=== PATIENT | male | born 1955 | race Caucasian/White ===

== ENCOUNTER 2019-01-23 09:24 | Outpatient (CLI) | payer BC ==
[2019-01-23 09:59] LABS: #Eosinphils 0.3 thou/uL (0.0-0.7); #Lymphocytes 1.6 thou/uL (1.20-3.40); #Monocytes 0.5 thou/uL (0.11-0.59); #Neutrophils 1.8 thou/uL (1.40-6.50); %Basophils 1.2 % (0.0-1.0); %Eosinophils 6.1 % (0.0-10.0); %Lymphocytes 37.1 % (21.0-51.0); %Monocytes 11.6 % (0.0-10.0); Hemoglobin 12.5 g/dL (14.0-18.0); Mean Corpuscular HGB CONC 35.5 g/dL (32.0-36.0); Mean Corpuscular Hemoglobin 35.9 pg (27.0-31.0); Platelet Count 179 thou/uL (130-400); RBC Distribution Width 12.7 % (11.5-14.5); Red Blood Cell (RBC) Count 3.48 mill/uL (4.70-6.10); White Blood Cell (WBC) Count 4.2 thou/uL (4.8-10.8)
[2019-01-23 10:18] LABS: Anion Gap 15 mmol/L (10-20); BUN (Urea Nitrogen) 21 mg/dL (8.4-25.7); Calc. Creatinine Clearance 0 mL/min (70-130); Carbon Dioxide 18 mmol/L (23-31); Chloride 105 mmol/L (98-107); Estimated GFR-MDRD 76; Glucose 89 mg/dL (80-115); Potassium 5.2 mmol/L (3.5-5.1); Sodium 133 mmol/L (136-145)
--- NOTE | 2019-01-23 10:26 | RAD ---
XR Chest 1 View History: Preop evaluation Comparison: None. Findings: Lungs are without confluent airspace consolidation, pneumothorax, or effusion. Multiple mid line sternotomy wires without evidence of dehiscence. Mild degenerative changes acromioclavicular joints. Impression: No acute intrathoracic abnormality.
== END 2019-01-23 09:25 | disposition home or self-care (01) ==
LOC: LABBT 09:24
PROVIDERS: ATTEND Internal Medicine Cardiovascular Disease
DX: Z01.818 Encounter for other preprocedural examination (principal); R94.39 Abnormal result of other cardiovascular function study
CPT/HCPCS: 71045; 80048; 85025

== ENCOUNTER 2019-01-29 05:33 | Observation (INO) | payer BC ==
[2019-01-23 09:14] VITALS: BMI 28.0
[2019-01-29] MEDS ORDERED: Lidocaine 1% (PF) 30 ML VIAL ONE (06:49)
[2019-01-29] MEDS ORDERED: Heparin 10,000 UNITS/1 ML VIAL ONE (06:50)
[2019-01-29] MEDS ORDERED: Midazolam HCl 2 mg/2 ml Vial ONE (07:16)
[2019-01-29] MEDS ORDERED: Fentanyl 100 MCG/2 ML VIAL ONE (07:16)
[2019-01-29] MEDS ORDERED: Protamine Sulfate 50 MG/5 ML VIAL ONE (08:04)
[2019-01-29] MEDS ORDERED: Sodium Chloride 0.9% 200 ML IV PRN (08:32)
[2019-01-29] MEDS ORDERED: Nitroglycerin 0.4 MG TAB (25 Tab Bottle) SL PRN (08:32)
[2019-01-29] MEDS ORDERED: Acetaminophen/Codeine 30-300mg Tablet PO PRN ×2 (08:32)
[2019-01-29] MEDS ORDERED: Sodium Chloride 0.9% 1,000 ML IV SCH (08:45)
[2019-01-29] MEDS: Aspirin 325 mg Enteric Coated Tablet PO SCH (11:38)
[2019-01-29] MEDS: Ezetimibe 10 MG TAB PO SCH (11:39)
[2019-01-29] MEDS: Fluticasone Propionate Nasal Spray 16 gm Bottle NASAL SCH (11:39)
[2019-01-29] MEDS: Azelastine 137 MCG/Spray 30 ML NS SCH (11:39)
[2019-01-29] MEDS: Nadolol 40 MG TAB PO SCH (11:41)
[2019-01-29] MEDS: Lisinopril 20 MG TAB PO SCH (11:41)
[2019-01-29] MEDS ORDERED: Iopamidol 370 76% 100 ML VIAL ONE (20:18)
[2019-01-29] MEDS ORDERED: Iopamidol 370 76% 50 ML VIAL FS ONE (20:18)
[2019-01-29] MEDS ORDERED: Atorvastatin Calcium 20 MG TAB PO SCH (21:00)
--- NOTE | 2019-01-30 01:22 | CON ---
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 His cardiac history started when he was age 42, suffering a myocardial infarction and undergoing stenting. About 15 years ago, he had recurrence of chest pain and ultimately underwent coronary artery bypass grafting x3 by Dr. Joe Baltazar in [place]. He has taken care of himself since then. However, recently, he has been noting to have fatigue in his arms and legs and occasionally associated with some pressure, but not severe chest pain that he has had prior to his cardiac surgery. He underwent coronary catheterization today demonstrating a patent MARTINEZ graft to a small LAD that filled multiple septals and a small diagonal. His right coronary vein graft appeared to be a good quality graft, however, went to a very small PDA system. His PDA appeared to be a 1 to 1.5 mm vessel at best and had critical lesion in its proximal portion. The posterolateral system was visualized with left-sided injection and was a small vessel as well. The right coronary system was heavily calcified. The circumflex system was patent with an occluded [place] LAD and there was one good-sized obtuse marginal, probably 2 mm that had serial 60% to 70% lesions x2. Left ventricular systolic function was normal. PAST MEDICAL HISTORY: Otherwise significant for hypertension and dyslipidemia. PAST SURGICAL HISTORY: Includes hip replacement. SOCIAL HISTORY: As noted above. He is a nonsmoker. PHYSICAL EXAMINATION: GENERAL: Alert, cooperative gentleman, no distress. Height about 6 feet tall, 210 pounds. I have reviewed the films and discussed it with him. I do not think the PDA is large enough to graft and I think the OM1 is a bypassable or vessel that could be stented. I do not think coronary artery bypass grafting will be an option in the future due to his small [place] circulation and patent MARTINEZ. Job ID: [id number] [facility]
[2019-01-30 07:59] VITALS: BP 121/66; TEMP 97.9
[2019-01-30] MEDS: Fluticasone Propionate Nasal Spray 16 gm Bottle NASAL SCH (09:00)
[2019-01-30] MEDS: Azelastine 137 MCG/Spray 30 ML NS SCH (09:00)
[2019-01-30] MEDS: Ezetimibe 10 MG TAB PO SCH (09:00)
[2019-01-30] MEDS: Aspirin 325 mg Enteric Coated Tablet PO SCH (09:00)
[2019-01-30] MEDS: Lisinopril 20 MG TAB PO SCH (09:01)
[2019-01-30] MEDS: Nadolol 40 MG TAB PO SCH (09:01)
--- NOTE | 2019-01-31 01:34 | DIS ---
DATE OF ADMISSION: 01/29/2019 DATE OF DISCHARGE: 01/30/2019 DISCHARGE DIAGNOSES: 1. Status post CABG x3 with one graft occluded, one graft patent and one graft with severe distal disease,. 2. History of myocardial infarction. 3. Hypercholesterolemia. 4. Hypertension. 5. Former smoker. 6. Peripheral vascular disease. DISCHARGE MEDICATIONS: 1. Ranexa 1000 mg -1/2 tablet b.i.d. x1 week and then one tablet b.i.d. 2. Aspirin 325 daily. 3. Plavix 75 daily. 4. Vytorin 10/40 at bedtime. 5. Astelin nasal spray. 6. Lisinopril 40 mg daily. 7. Nadolol 40 mg daily. 8. Nitroglycerin p.r.n. 9. Pantoprazole 40 daily. DISCHARGE DISPOSITION: The patient to be seen in 1 month for followup. Consideration may be given to intervention in the circumflex system in the future. HOSPITAL COURSE: Mr. Jorgensen recently moved from [place] and came in to [facility] care. He did at times have some right chest discomfort when he was initially seen, which sounded more GI in nature. With pantoprazole, he did not have any recurrence of that. However, on follow up visit, he did describe exertional chest discomfort associated with shortness of breath, relieving with rest in a few minutes. He underwent nuclear stress testing, which revealed proximal to distal inferior, mid to distal anterior and apical ischemia. He underwent cardiac catheterization. There was mild anterior hypokinesis with ejection fraction of 50% to 55%. Coronary arteries revealed normal left main. The LAD was totally occluded proximally. The proximal septals filled retrograde from the right coronary artery graft. The circumflex had an 80% proximal stenosis, 50% first obtuse marginal stenosis and an 80% second obtuse marginal stenosis. The right coronary was totally occluded in its mid portion. Bypass grafts revealed patent MARTINEZ to the LAD. The diagonal filled from the LAD but had a 90% stenosis. There was an unknown proximal portion of a graft that was found that was totally occluded. The right coronary artery had a 90% lesion at the distal anastomosis. The right posterolateral was totally occluded and filled retrograde from the circumflex. The right posterior descending artery was very tortuous distal to the 90% graft stenosis, the vessel also was small. He was seen in consultation by Dr. Henriquez, who felt that the right posterior descending was too small for re-bypass and that he should be treated medically or possibly with intervention in the circumflex in the future. The patient was observed overnight and then discharged. He will be started on Ranexa as an outpatient in the hopes of improving his exertional symptoms. He also was given a CD copy of his cardiac cath, so if he wishes to seek another opinion, he will have that available. He will be seen in 1 month for followup. Job ID: [id number] [facility]
== END 2019-01-30 10:23 | disposition home or self-care (01) ==
LOC: SDC 05:33 → 2SW 10:30
PROVIDERS: ADMIT Internal Medicine Cardiovascular Disease; ATTEND Internal Medicine Cardiovascular Disease
PROC: 4A023N7 Measurement of Cardiac Sampling and Pressure, Left Heart, Percutaneous Approach (ICD-10-PCS; principal; 2019-01-30)
DX: I25.810 Atherosclerosis of coronary artery bypass graft(s) without angina pectoris (principal); I25.10 Atherosclerotic heart disease of native coronary artery without angina pectoris; I25.82 Chronic total occlusion of coronary artery; I25.2 Old myocardial infarction; I10 Essential (primary) hypertension; E78.00 Pure hypercholesterolemia, unspecified; I73.9 Peripheral vascular disease, unspecified; Z79.899 Other long term (current) drug therapy; Z87.891 Personal history of nicotine dependence; Z95.1 Presence of aortocoronary bypass graft
CPT/HCPCS: 93455; 94760; 99152; 99153; C1769; G0378; J1644; J2001; J2250; J2720; J3010; Q9967

== ENCOUNTER 2022-08-29 12:05 | Outpatient (CLI) | payer MEDICARE ==
[~2022-08-29 12:05] MED LIST: Iopamidol 370 76% 100 ML VIAL ONE
== END 2022-08-29 12:06 | disposition home or self-care (01) ==
LOC: CT 12:05
PROVIDERS: ATTEND Thoracic Surgery (Cardiothoracic Vascular Surgery)
DX: I70.203 Unspecified atherosclerosis of native arteries of extremities, bilateral legs (principal); I77.1 Stricture of artery; M87.052 Idiopathic aseptic necrosis of left femur; M89.9 Disorder of bone, unspecified; M16.12 Unilateral primary osteoarthritis, left hip
CPT/HCPCS: 75635; 82565; Q9967

== ENCOUNTER 2022-12-01 10:50 | Observation (INO) | payer MEDICARE ==
[2022-12-01 11:39] LABS: #Basophils 0.1 thou/uL (0.0-0.2); #Eosinphils 0.2 thou/uL (0.0-0.7); #Neutrophils 4.4 thou/uL (1.40-6.50); %Basophils 0.7 % (0.0-1.0); %Eosinophils 2.7 % (0.0-10.0); %Lymphocytes 34.9 % (21.0-51.0); %Monocytes 11.5 % (0.0-10.0); %Neutrophils 49.8 % (42.0-75.0); Hemoglobin 12.7 g/dL (14.0-18.0); Mean Corpuscular HGB CONC 33.4 g/dL (32.0-36.0); Mean Corpuscular Hemoglobin 32.4 pg (27.0-31.0); Mean Corpuscular Volume 96.9 fl (78.0-98.0); Mean Platelet Volume 9.8 fL (7.4-10.4); Platelet Count 227 10x3/uL (130-400); Red Blood Cell (RBC) Count 3.92 mill/uL (4.70-6.10); White Blood Cell (WBC) Count 8.9 10x3/uL (4.8-10.8)
[2022-12-01] MEDS ORDERED: Iopamidol-370 76% 500 ML MDV (1 ML CHARGE) ONE (12:01)
[2022-12-01 12:05] LABS: ALT (SGPT) 19 U/L (8-55); AST (SGOT) 23 U/L (5-34); Albumin 3.8 g/dL (3.4-4.8); Alkaline Phosphatase 73 U/L (40-110); Anion Gap 18 mmol/L (10-20); BUN (Urea Nitrogen) 5 mg/dL (8.4-25.7); Bilirubin, Total 0.6 mg/dL (0.2-1.2); Calc. Creatinine Clearance 0 mL/min (70-130); Calcium 9.9 mg/dL (7.8-10.44); Carbon Dioxide 20 mmol/L (23-31); Chloride 96 mmol/L (98-107); Estimated GFR 102; Globulin 2.8 g/dL (2.4-3.5); Glucose 119 mg/dL (80-115); Potassium 3.8 mmol/L (3.5-5.1); Protein, Total 6.6 g/dL (5.8-8.1); Sodium 130 mmol/L (136-145); Troponin I Less than 0.010 ng/mL (< 0.028)
[2022-12-01] MEDS ORDERED: Aspirin Chewable 81 MG TAB ONE (13:38)
[2022-12-01] MEDS ORDERED: Acetaminophen 325 MG TAB PO PRN (14:16)
[2022-12-01] MEDS ORDERED: Ondansetron PF 4 MG/2 ML Vial IVP PRN (14:16)
[2022-12-01] MEDS ORDERED: predniSONE 20 MG TAB PO SCH (15:30)
[2022-12-01 15:47] LABS: SARS-CoV-2 NAA Rapid Test Not Detected (NotDetected)
[2022-12-01 16:03] LABS: Troponin I Less than 0.010 ng/mL (< 0.028)
[2022-12-01 16:04] VITALS: BMI 26.9
[2022-12-01] MEDS: Ipratropium/Albuterol 3 ML NEB NEB SCH ×2 (18:17→22:19)
[2022-12-01] MEDS: Budesonide 0.5 MG/2 ML NEB NEB SCH (18:18)
[2022-12-01] MEDS: Arformoterol 15 MCG/2 ML NEB NEB SCH (18:18)
[2022-12-01 19:46] LABS: Troponin I Less than 0.010 ng/mL (< 0.028)
[2022-12-01] MEDS: Nitroglycerin 2% Ointment 1 INCH/1 GM Packet TOP SCH (20:39)
[2022-12-01] MEDS ORDERED: Montelukast Sodium 10 mg Tablet PO SCH (21:00)
[2022-12-01] MEDS ORDERED: Atorvastatin Calcium 40 MG TAB PO SCH (21:00)
[2022-12-01 22:11] LABS: Bacteria/HPF None Seen HPF (None Seen); Bilirubin Negative (Negative); Blood, Urine Negative (Negative); Clarity Clear (Clear); Glucose, Urine (Dipstick) Normal (Negative); Ketone, Urine Negative (Negative); Leukocyte Negative Leu/uL (Negative); Nitrite Negative (Negative); Protein, Urine (Dipstick) Negative (Neg-Trace); RBC/HPF 0-3 HPF (0-3); Specific Gravity, Urine 1.043 (1.002-1.036); Squamous Epithelial None Seen HPF (0-3); Urobilinogen Normal mg/dL (Less than 2); WBC/HPF 0-3 HPF (0-3); pH, Urine 5.5 (5.0-9.0)
[2022-12-02] MEDS: Ipratropium/Albuterol 3 ML NEB NEB SCH ×6 (02:20→22:23)
[2022-12-02] MEDS: Nitroglycerin 2% Ointment 1 INCH/1 GM Packet TOP SCH ×3 (04:55→20:20)
[2022-12-02 06:31] LABS: #Eosinphils 0.3 thou/uL (0.0-0.7); #Monocytes 0.8 thou/uL (0.11-0.59); #Neutrophils 4.2 thou/uL (1.40-6.50); %Basophils 0.5 % (0.0-1.0); %Eosinophils 3.6 % (0.0-10.0); %Lymphocytes 29.6 % (21.0-51.0); %Monocytes 10.9 % (0.0-10.0); %Neutrophils 55.3 % (42.0-75.0); Hematocrit 35.6 % (42.0-52.0); Hemoglobin 12.5 g/dL (14.0-18.0); Mean Corpuscular HGB CONC 35.1 g/dL (32.0-36.0); Mean Platelet Volume 9.9 fL (7.4-10.4); Platelet Count 239 10x3/uL (130-400); Red Blood Cell (RBC) Count 3.91 mill/uL (4.70-6.10); White Blood Cell (WBC) Count 7.6 10x3/uL (4.8-10.8)
[2022-12-02 06:55] LABS: Anion Gap 17 mmol/L (10-20); BUN (Urea Nitrogen) 4 mg/dL (8.4-25.7); Calc. Creatinine Clearance 128 mL/min (70-130); Calcium 9.9 mg/dL (7.8-10.44); Carbon Dioxide 19 mmol/L (23-31); Chloride 100 mmol/L (98-107); Estimated GFR 103; Glucose 119 mg/dL (80-115); Potassium 3.7 mmol/L (3.5-5.1); Sodium 132 mmol/L (136-145)
[2022-12-02] MEDS: Arformoterol 15 MCG/2 ML NEB NEB SCH ×2 (07:11→18:20)
[2022-12-02] MEDS: Budesonide 0.5 MG/2 ML NEB NEB SCH ×2 (07:11→18:20)
[2022-12-02] MEDS: Loratadine 10 MG TAB PO SCH (08:10)
[2022-12-02] MEDS ORDERED: Ezetimibe 10 MG TAB PO SCH (09:00)
[2022-12-02] MEDS ORDERED: predniSONE 20 MG TAB PO SCH (09:00)
[2022-12-02] MEDS ORDERED: Clopidogrel Bisulfate 75 MG TAB PO SCH (09:00)
[2022-12-02] MEDS ORDERED: Nadolol 40 MG TAB PO SCH (09:00)
[2022-12-02] MEDS ORDERED: Aspirin 325 MG TAB PO SCH ×2 (09:00)
[2022-12-02] MEDS ORDERED: Albuterol 200 PUFF (6.7GM INHALER) INH PRN (09:17)
[2022-12-02] MEDS ORDERED: Ipratropium Bromide 2.5 ml Neb NEB SCH (15:00)
[2022-12-02] MEDS ORDERED: Atorvastatin Calcium 40 MG TAB PO SCH (21:00)
[2022-12-02] MEDS ORDERED: Montelukast Sodium 10 mg Tablet PO SCH (21:00)
[2022-12-02] MEDS ORDERED: Non-Formulary Item 1 EACH (Budesonide/Formoterol Fumarate [Budesonide-Formoterol 160-4.5] IH SCH (21:00)
[2022-12-03] MEDS: Ipratropium/Albuterol 3 ML NEB NEB SCH ×3 (02:21→09:04)
[2022-12-03] MEDS: Loratadine 10 MG TAB PO SCH (05:42)
[2022-12-03] MEDS ORDERED: Communication Order-Pharmacy FS SCH (06:00)
[2022-12-03] MEDS ORDERED: Lidocaine 1% (PF) 30 ML VIAL ONE (06:15)
[2022-12-03] MEDS ORDERED: Nitroglycerin 50 MG/250 ML BOT 0 ML ONE (06:15)
[2022-12-03] MEDS ORDERED: Midazolam HCl 2 mg/2 ml Vial ONE (06:15)
[2022-12-03] MEDS ORDERED: fentaNYL 50 mcg/mL 1 mL Vial ONE (06:15)
[2022-12-03] MEDS ORDERED: Heparin 10,000 UNITS/ 10 ML VIAL ONE (06:15)
[2022-12-03] MEDS: Nitroglycerin 2% Ointment 1 INCH/1 GM Packet TOP SCH (06:24)
[2022-12-03] MEDS: Budesonide 0.5 MG/2 ML NEB NEB SCH ×2 (06:40→09:04)
[2022-12-03] MEDS: Arformoterol 15 MCG/2 ML NEB NEB SCH ×2 (06:40→09:03)
[2022-12-03] MEDS ORDERED: Protamine Sulfate 50 MG/5 ML VIAL ONE (07:42)
[2022-12-03] MEDS ORDERED: Nitroglycerin 0.4 MG TAB (25 Tab Bottle) SL PRN (08:21)
[2022-12-03] MEDS ORDERED: Sodium Chloride 0.9% 200 ML IV PRN (08:21)
[2022-12-03] MEDS ORDERED: Acetaminophen/Codeine 30-300mg Tablet PO PRN ×3 (08:21→08:31)
[2022-12-03] MEDS ORDERED: Sodium Chloride 0.9% 1,000 ML IV SCH (08:30)
[2022-12-03] MEDS ORDERED: Ezetimibe 10 MG TAB PO SCH (09:00)
[2022-12-03] MEDS ORDERED: Aspirin 325 mg Enteric Coated Tablet PO SCH (09:00)
[2022-12-03] MEDS ORDERED: Aspirin Chewable 81 MG TAB PO SCH (09:00)
[2022-12-03] MEDS ORDERED: Furosemide 20 MG TAB PO SCH (09:00)
[2022-12-03] MEDS ORDERED: Nadolol 40 MG TAB PO SCH (09:00)
[2022-12-03] MEDS ORDERED: Clopidogrel Bisulfate 75 MG TAB PO SCH (09:00)
[2022-12-03] MEDS ORDERED: Iopamidol 370 76% 100 ML VIAL ONE (09:21)
[2022-12-03 11:55] VITALS: BP 143/66; TEMP 97.9
== END 2022-12-03 11:57 | disposition left against medical advice (07) ==
LOC: ERS 10:50 → 2SW 13:24
PROVIDERS: ADMIT Family Medicine; ATTEND Internal Medicine
DX: R07.89 Other chest pain (principal); I25.10 Atherosclerotic heart disease of native coronary artery without angina pectoris; I10 Essential (primary) hypertension; E78.5 Hyperlipidemia, unspecified; K21.9 Gastro-esophageal reflux disease without esophagitis; E87.1 Hypo-osmolality and hyponatremia; J44.9 Chronic obstructive pulmonary disease, unspecified; I73.9 Peripheral vascular disease, unspecified; Z95.1 Presence of aortocoronary bypass graft; Z79.82 Long term (current) use of aspirin; Z79.02 Long term (current) use of antithrombotics/antiplatelets; Z79.899 Other long term (current) drug therapy
CPT/HCPCS: 0240U; 71045; 71275; 80048; 80053; 81001; 83880; 84484 ×2; 85025 ×2; 85347; 85379; 93005; 93459; 94640 ×4; 94760; 99285; C1769 ×2; G0378 ×4; J3010; 36415; 99152; 99153; J1644; J2001; J2250; J2720; J7050; J7620; J7626; Q9967

== ENCOUNTER 2022-12-19 13:39 | Outpatient (CLI) | payer MEDICARE ==
[2022-12-19 14:31] LABS: #Basophils 0.1 10x3/uL (0.0-0.2); #Eosinphils 0.4 10x3/uL (0.0-0.5); #Monocytes 0.8 10x3/uL (0.0-1.1); #Neutrophils 4.6 10x3/uL (1.5-8.4); %Basophils 0.7 % (0.0-2.0); %Eosinophils 4.1 % (0.0-6.0); %Lymphocytes 30.5 % (18.0-47.0); %Monocytes 9.8 % (0.0-10.0); %Neutrophils 54.4 % (40.0-75.0); Hematocrit 38.1 % (38.8-50.0); Hemoglobin 12.7 g/dL (13.5-17.5); Mean Corpuscular HGB CONC 33.3 g/dL (32.0-36.0); Mean Corpuscular Hemoglobin 31.2 pg (27.0-33.0); Mean Corpuscular Volume 93.6 fl (81.2-95.1); Mean Platelet Volume 9.7 fl (7.4-10.4); Platelet Count 288 10x3/uL (150-450); RBC Distribution Width 14.2 % (11.5-14.5); Red Blood Cell (RBC) Count 4.07 10x6/uL (4.32-5.72); White Blood Cell (WBC) Count 8.4 10x3/uL (3.5-10.5)
[2022-12-19 14:39] LABS: Prothrombin Time 10.4 sec (9.5-12.1)
[2022-12-19 14:42] LABS: Anion Gap 13 mmol/L (10-20); BUN (Urea Nitrogen) 5 mg/dL (8.4-25.7); Calc. Creatinine Clearance 0 mL/min (70-130); Calcium 9.6 mg/dL (7.8-10.44); Carbon Dioxide 28 mmol/L (23-31); Chloride 101 mmol/L (98-107); Estimated GFR 98; Glucose 108 mg/dL (80-115); Potassium 4.7 mmol/L (3.5-5.1); Sodium 137 mmol/L (136-145)
== END 2022-12-19 13:40 | disposition home or self-care (01) ==
LOC: LABBT 13:39
PROVIDERS: ATTEND Orthopaedic Surgery
DX: Z01.812 Encounter for preprocedural laboratory examination (principal); M16.12 Unilateral primary osteoarthritis, left hip
CPT/HCPCS: 80048; 85025; 85610; 87081

== ENCOUNTER 2022-12-25 06:41 | Day surgery (SDC) | payer MEDICARE ==
[2022-12-19 14:03] VITALS: BMI 28.3
[2022-12-25] MEDS ORDERED: Midazolam HCl 2 mg/2 ml Vial ONE (07:30)
[2022-12-25] MEDS ORDERED: fentaNYL 50 mcg/mL 1 mL Vial ONE (07:30)
[2022-12-25] MEDS ORDERED: Sodium Chloride 0.9% 100 ML ONE (07:33)
[2022-12-25] MEDS ORDERED: Tranexamic Acid 1,000 MG/10 ML VIAL ONE (07:33)
[2022-12-25] MEDS ORDERED: Vancomycin (BATCH) 1.5 GRAM/300 ML BAG ONE (07:34)
== END 2022-12-25 09:35 | disposition home or self-care (01) ==
LOC: SDC 06:41
PROVIDERS: ATTEND Orthopaedic Surgery
DX: M16.12 Unilateral primary osteoarthritis, left hip (principal); I10 Essential (primary) hypertension; I25.2 Old myocardial infarction; I25.10 Atherosclerotic heart disease of native coronary artery without angina pectoris; J45.909 Unspecified asthma, uncomplicated; Z96.642 Presence of left artificial hip joint; Z87.891 Personal history of nicotine dependence; Z79.899 Other long term (current) drug therapy; Z95.1 Presence of aortocoronary bypass graft; Z53.9 Procedure and treatment not carried out, unspecified reason
CPT/HCPCS: 86850; 86900; 86901; J2250; J3010; J3370; J3490

== ENCOUNTER 2023-02-27 09:51 | Outpatient (CLI) | payer MEDICARE | END 2023-02-27 09:52 | disposition home or self-care (01) | LOC: RAD 09:51 | PROVIDERS: ATTEND Internal Medicine Critical Care Medicine | DX: R06.00 Dyspnea, unspecified (principal) | CPT/HCPCS: 71046 ==

== ENCOUNTER 2023-03-14 12:59 | Outpatient (CLI) | payer MEDICARE | END 2023-03-14 13:00 | disposition home or self-care (01) | LOC: SCSMRI 12:59 | PROVIDERS: ATTEND Neurological Surgery | DX: M48.02 Spinal stenosis, cervical region (principal); M47.26 Other spondylosis with radiculopathy, lumbar region; M47.812 Spondylosis without myelopathy or radiculopathy, cervical region; M47.813 Spondylosis without myelopathy or radiculopathy, cervicothoracic region; M47.815 Spondylosis without myelopathy or radiculopathy, thoracolumbar region; Z98.890 Other specified postprocedural states | CPT/HCPCS: 72156; 72158 ==

== ENCOUNTER 2023-06-19 13:24 | Emergency (ER) | payer MEDICARE | END 2023-06-19 18:18 | disposition left against medical advice (07) | LOC: ERS 13:24 | DX: Z53.21 Procedure and treatment not carried out due to patient leaving prior to being seen by health care provider (principal) ==

== ENCOUNTER 2025-04-05 10:02 | Outpatient (CLI) | payer MEDICARE, OTHER | END 2025-04-05 10:03 | disposition home or self-care (01) | LOC: RAD 10:02 | PROVIDERS: ATTEND Internal Medicine Critical Care Medicine | DX: R06.00 Dyspnea, unspecified (principal) | CPT/HCPCS: 71046 ==